=== PATIENT | male | born 1970 | race Caucasian/White ===

== ENCOUNTER 2021-05-09 19:50 | Emergency (ER) | payer MEDICARE ==
[~2021-05-09] VITALS: Ht 177.8 cm; Wt 90.7 kg
[2021-05-09 20:06] VITALS: BP 130/82
[2021-05-09] MEDS ORDERED: ONDANSETRON 4MG INJ IVP ONE (21:00)
[2021-05-09] MEDS ORDERED: ZOSYN 3.375GM +NS 50ML IV ONE (21:00)
[2021-05-09] MEDS ORDERED: 0.9%NACL 1000ML 1,000 ML IV ONE (21:00)
[2021-05-09] MEDS ORDERED: ACETAMINOPHEN 325 MG TAB PO ONE (21:00)
[2021-05-09] MEDS ORDERED: MORPHINE 4 MG SYG IVP ONE (21:00)
[2021-05-09] MEDS ORDERED: 0.9%NACL 50ML 50 ML IV ONE (21:46)
[2021-05-09 21:51] LABS: BASOPHILS % (AUTO) 0.6 % (0.0-5.0); EOSINOPHILS % (AUTO) 2.9 % (0.0-8.0); HEMATOCRIT 41.7 % (42-54); LYMPHOCYTES % (AUTO) 31.4 % (21.0-51.0); MEAN CORPUSCULAR HEMOGLOBIN 29.7 pg (27.0-33.0); MEAN CORPUSCULAR HGB CONC 31.9 g/dL (32.0-36.0); MEAN CORPUSCULAR VOLUME 93.1 fL (79-99); MONOCYTES % (AUTO) 6.7 % (3.0-13.0); NEUTROPHILS % (AUTO) 57.9 % (40.0-77.0); PLATELET COUNT (AUTO) 288 K/uL (130-400); RED BLOOD CELL COUNT(AUTO) 4.48 MIL/uL (4.50-6.20); WHITE BLOOD COUNT (AUTO) 8.3 K/uL (4.8-10.8)
[2021-05-09 22:01] LABS: CREATININE 1.1 mg/dL (0.5-1.5); POTASSIUM 3.6 mmol/L (3.5-5.1)
[2021-05-09 22:05] LABS: ALBUMIN 3.4 g/dL (3.5-5.0); BILIRUBIN,TOTAL 0.2 mg/dL (0.2-1.0); TOTAL PROTEIN, SERUM 7.7 g/dL (6.0-8.3)
[2021-05-09 22:45] LABS: APPEARANCE,URINE Clear (CLEAR); BILIRUBIN,URINE Negative (NEGATIVE); COLOR,URINE Yellow (YELLOW); GLUCOSE, URINE (UA) Negative (NEGATIVE); KETONES,URINE Trace mg/dL (NEGATIVE); LEUKOCYTE ESTERASE ,URINE Negative (NEGATIVE); NITRATE,URINE Negative (NEGATIVE); OCCULT BLOOD,URINE Small (NEGATIVE); PH,URINE 5.5 (5.0-8.0); PROTEIN,URINE Negative (NEGATIVE)
[2021-05-09 22:55] LABS: BACTERIA,URINE None Seen /HPF (None Seen); WBC,URINE None Seen /HPF (0-1)
[2021-05-09 22:56] LABS: SQUAMOUS EPITHELIAL CELL,UR None Seen /HPF (0-2)
[2021-05-09] MEDS ORDERED: MAGN296S76 PO (23:21)
[2021-05-09] MEDS ORDERED: MICO45CR44 TD (23:21)
[2021-05-09] MEDS ORDERED: TAMS-1 PO (23:21)
[2021-05-09] MEDS ORDERED: PHEN-847 PO (23:21)
== END 2021-05-10 00:14 | disposition home or self-care (01) ==
LOC: EDH 19:50
DX: R30.0 Dysuria (principal); K59.00 Constipation, unspecified; R11.0 Nausea; R10.9 Unspecified abdominal pain; F41.9 Anxiety disorder, unspecified; F32.9 Major depressive disorder, single episode, unspecified; F20.9 Schizophrenia, unspecified; Z88.5 Allergy status to narcotic agent; Z88.8 Allergy status to other drugs, medicaments and biological substances; Z79.899 Other long term (current) drug therapy
CPT/HCPCS: 36415; 74176; 80053; 81001; 83605; 83690; 85025; 87040 ×2; 87088; 93005; 96365; 96375; 99285; J2270; J2405; J2543; J7030; 96374